=== PATIENT | male | born 1990 | race Caucasian/White ===

== ENCOUNTER 2023-10-21 16:46 | Emergency (ER) | payer OTHER ==
[2023-10-21] MEDS: Diphtheria,Pertussis(Acell),Tetanus Vaccine 0.5 ML Syringe IM ONE (17:15)
== END 2023-10-21 17:30 | disposition home or self-care (01) ==
LOC: KA.ED 16:46
DX: S91.312A Laceration without foreign body, left foot, initial encounter (principal); Z23 Encounter for immunization; Z88.8 Allergy status to other drugs, medicaments and biological substances; Z79.899 Other long term (current) drug therapy; W20.8XXA Other cause of strike by thrown, projected or falling object, initial encounter; Y93.89 Activity, other specified
CPT/HCPCS: 73630-LT; 90471; 90715; 99283-25

== ENCOUNTER 2024-03-06 10:30 | Emergency (ER) | payer OTHER ==
[2024-03-06] MEDS: HYDROmorphone 1 MG/ML Syringe IVPUSH ONE ×2 (11:20→12:29)
== END 2024-03-06 12:35 ==
LOC: KA.ED 10:30
DX: S82.51XA Displaced fracture of medial malleolus of right tibia, initial encounter for closed fracture (principal); S87.81XA Crushing injury of right lower leg, initial encounter; I10 Essential (primary) hypertension; Z88.8 Allergy status to other drugs, medicaments and biological substances; Z79.899 Other long term (current) drug therapy; W23.1XXA Caught, crushed, jammed, or pinched between stationary objects, initial encounter
CPT/HCPCS: 29515; 73590-RT; 73600-RT; 73620-RT; 96374; 96376; 99284-25; J1171